=== PATIENT | male | born 1970 | race Caucasian/White ===

== ENCOUNTER 2018-02-14 18:57 | Emergency (ER) | payer OTHER ==
--- NOTE | 2018-02-14 19:24 | ERPHSYRPT ---
- History of Present Illness Time Seen by Provider: 02/14/18 19:05 Source: patient, family Patient Subjective Stated Complaint: sore throat Triage Nursing Assessment: Patient ambulated into ED and transferred self to bed. Patient complains of feeling like something is in his throat. Patient states he was eating dinner at a local [place] restaurant eating chicken and rice. After dinner he states he felt like a piece of food was stuck in his throat. Patient states he feels more discomfort when lying down. Patient denies SOB. Lungs noted to be clear a/p rusty. O2 94% on room air. No foreign body noted. Physician History: 47 y/o white male in no respiratory or gastrointestinal distress, presents with sore throat and painful swallowing. hurts worse when pt lying flat. 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 Timing/Duration: abrupt onset (scow captain) Severity: mild ENT Location: throat Prearrival Treatment: no prearrival treatment Associated Symptoms: sore throat (when lying flat and swallowing) Allergies/Adverse Reactions: No Known Drug Allergies Allergy (Unverified 02/14/18 19:19) Hx Tetanus, Diphtheria Vaccination/Date Given: No Hx Influenza Vaccination/Date Given: No Hx Pneumococcal Vaccination/Date Given: No Immunizations Up to Date: Yes - Review of Systems Constitutional: No Symptoms Eyes: No Symptoms Ears, Nose, & Throat: Throat Pain (mild when swallowing) Respiratory: No Symptoms Cardiac: No Symptoms Abdominal/Gastrointestinal: No Symptoms Genitourinary Symptoms: No Symptoms Musculoskeletal: No Symptoms Skin: No Symptoms Neurological: No Symptoms Psychological: No Symptoms Endocrine: No Symptoms Hematologic/Lymphatic: No Symptoms Immunological/Allergic: No Symptoms All Other Systems: Reviewed and Negative - Past Medical History Pertinent Past Medical History: No Neurological History: No Pertinent History ENT History: No Pertinent History Cardiac History: No Pertinent History Respiratory History: No Pertinent History Endocrine Medical History: No Pertinent History Musculoskeletal History: No Pertinent History GI Medical History: No Pertinent History History: No Pertinent History Psycho-Social History: No Pertinent History Male Reproductive Disorders: No Pertinent History - Past Surgical History Past Surgical History: Yes Neuro Surgical History: No Pertinent History Cardiac: No Pertinent History Respiratory: No Pertinent History Gastrointestinal: No Pertinent History Genitourinary: No Pertinent History Musculoskeletal: Orthopedic Surgery Male Surgical History: No Pertinent History Other Surgical History: Rusty knee surgeries - Social History Smoking Status: Current some day smoker How long have you smoked: 30 years Exposure to second hand smoke: Yes Drug Use: none Patient Lives Alone: No - Nursing Vital Signs Nursing Vital Signs: Initial Vital Signs Temperature 99.1 F 02/14/18 19:09 Pulse Rate 81 02/14/18 19:09 Respiratory Rate 18 02/14/18 19:09 Blood Pressure 143/92 02/14/18 19:09 O2 Sat by Pulse Oximetry 96 02/14/18 19:09 Pain Scale Pain Intensity 0 - Physical Exam General Appearance: no apparent distress, alert, anxiety (mildy anxious) Eye Exam: bilateral eye: normal inspection, PERRL, EOMI, abnormal EOM Ear Exam: bilateral ear: auricle normal, canal normal, TM normal Nasal Exam: normal inspection Throat Exam: moist mucus membranes, pharynx tenderness (oropharynx with redness. no fb, no swelling. 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 Counseled pt/family regarding: diagnosis, need for follow-up, rad results - Departure Time of Disposition: 20:02 Departure Disposition: Home Clinical Impression: Foreign body sensation in throat Condition: Stable Critical Care Time: No Additional Instructions: drink plenty of fluids. may use throat lozenges of any type. use tylenol and ibuprofen for pain. follow up with ENT tomorrow for further management. swish, gargle and spit out the viscous lidocaine every 8 hours as needed. Prescriptions: Lidocaine HCl Viscous [XYLOCAINE HCl Viscous *] 10 ml MM Q8H PRN PRN #1 bottle PRN Reason: Mild To Moderate Pain
[2018-02-14] MEDS ORDERED: DELTASONE 20 MG PO ONE (20:00)
[2018-02-14] MEDS ORDERED: XYLOCAINE HCl Viscous MM ONE (20:01)
[2018-02-14] MEDS ORDERED: DELTASONE 20 MG ONE (20:09)
[2018-02-14] MEDS ORDERED: XYLOCAINE HCl Viscous ONE (20:10)
[2018-02-14 20:20] VITALS: BP 138/79; PULSE 73; O2SAT 94
--- NOTE | 2018-02-15 09:00 | XRAY ---
Indication: Painful pharynx. Possible foreign body. Comparison: None AP/lateral soft tissue neck negative for radiopaque foreign body. Normal epiglottis. Underlying cervical spine intact with minimal degenerative changes. Impression: Negative soft tissue neck.
== END 2018-02-14 20:25 | disposition home or self-care (01) ==
LOC: ED 18:57
DX: R09.89 Other specified symptoms and signs involving the circulatory and respiratory systems (principal)
CPT/HCPCS: 70360; 96372; 99283; A9270

== ENCOUNTER 2020-02-04 18:34 | Emergency (ER) | payer OTHER ==
[2020-02-04] MEDS ORDERED: HYDROCODONE-ACETAMIN 2.5-108/5 ML SOLUTION ONE (19:51)
[2020-02-04] MEDS ORDERED: solu-MEDROL 125 MG ONE (19:51)
[2020-02-04 19:55] LABS: Absolute Neutrophil Ct (ANC) 5.67 (1.4-6.9); BASOPHIL % 0.4 % (0.0-0.4); Basophil (Absolute #) 0.04 (0-0.4); Eosinophil (Absolute #) 0.27 (0-0.5); Lymphocyte (Absolute #) 1.86 (1.0-4.6); Lymphocytes % 20.8 % (24.0-44.0); Mean Cell Volume 92.8 fl (78-100); Mean Corpuscular Hemoglobin 31.5 pg (26-32); Mean Platelet Volume 9.9 fl (7.5-11.0); Monocyte (Absolute #) 1.11 (0.0-1.3); Monocytes % 12.4 % (0.0-12.0); Neutrophil % 63.4 % (36.0-66.0); Platelet Count 216 K/mm3 (150-450); Red Blood Count 5.39 M/mm3 (4.1-5.6); Red Cell Distribution Width 13.3 % (11.5-14.0)
[2020-02-04] MEDS: HYDROCODONE-ACETAMIN 2.5-108/5 ML SOLUTION PO STA (19:57)
[2020-02-04] MEDS: solu-MEDROL 125 MG IV ONE (19:57)
[2020-02-04 20:01] LABS: ALBUMIN 4.4 g/dL (3.5-5.0); ALKALINE PHOSPHATASE 90 U/L (38-126); BLOOD UREA NITROGEN 14 mg/dL (9-20); CHLORIDE 106 mmol/L (98-107); Calcium 9.7 mg/dL (8.4-10.2); Carbon Dioxide 20 mmol/L (22-30); Creatinine 1 0.98 mg/dL (0.66-1.25); EST GLOMERULAR FILTRATION RATE > 60.0 ML/MIN; Glucose 108 mg/dL (74-106); Potassium 4.3 mmol/L (3.5-5.1); SGOT/AST 34 U/L (17-59); SGPT/ALT 34 U/L (0-50); SODIUM 136 mmol/L (137-145)
[2020-02-04] MEDS: Ventolin Hfa MDI IH STA (20:12)
--- NOTE | 2020-02-04 20:21 | ERPHSYRPT ---
- History of Present Illness Time Seen by Provider: 02/04/20 19:15 Source: patient Exam Limitations: no limitations Patient Subjective Stated Complaint: here for cough,chills aches, headache since last night,sob Triage Nursing Assessment: pt alert, resp easy, face mask in place, has dry hacky cough, no edema, mucus membranses moist Physician History: 49 years old male presented in the ER with 2 days history of progressively worsening cough congestion. Patient report initially it started as a sore throat followed by nasal/sinus congestion and dry cough. Patient is having bouts of dry coughing with minimal shortness of breath during episodes of coughing. Denies fever but has chills, body aches and mild headache and nausea. Denies any abdominal pain. Patient does not report any known positive COVID-19 sick contact. Denies any chest pain or palpitations. Timing/Duration: day(s) (2), gradual onset, worse Cough Quality/Degree: moderate, dry cough Possible Cause: no prior episodes Modifying Factors: Improves With: coughing Associated Symptoms: chills, cough, headache, muscle aches, nasal congestion, sore throat, No fever Allergies/Adverse Reactions: No Known Drug Allergies Allergy (Verified 02/04/20 18:49) Hx Tetanus, Diphtheria Vaccination/Date Given: No Hx Influenza Vaccination/Date Given: No Hx Pneumococcal Vaccination/Date Given: No Immunizations Up to Date: Yes Travel Risk - International Travel Have you traveled outside of the country in past 3 weeks: No - Coronavirus Screening Are you exhibiting any of the following symptoms?: Yes Symptoms: Cough: New Onset, Shortness of Breath, Vomiting/Diarrhea, Head aches/Body Aches/Fatigue - Review of Systems Constitutional: Chills, Fatigue, Malaise Eyes: No Symptoms Ears, Nose, & Throat: Nose Congestion, Throat Pain Respiratory: Cough, No Wheezing Cardiac: No Symptoms Abdominal/Gastrointestinal: Nausea Genitourinary Symptoms: No Symptoms Musculoskeletal: Myalgias Skin: No Symptoms Neurological: No Symptoms Psychological: No Symptoms Endocrine: No Symptoms Hematologic/Lymphatic: No Symptoms Immunological/Allergic: No Symptoms - Past Medical History Pertinent Past Medical History: No Neurological History: No Pertinent History ENT History: No Pertinent History Cardiac History: No Pertinent History Respiratory History: No Pertinent History Endocrine Medical History: No Pertinent History Musculoskeletal History: No Pertinent History GI Medical History: No Pertinent History History: No Pertinent History Psycho-Social History: No Pertinent History Male Reproductive Disorders: No Pertinent History - Past Surgical History Past Surgical History: Yes Neuro Surgical History: No Pertinent History Cardiac: No Pertinent History Respiratory: No Pertinent History Gastrointestinal: No Pertinent History Genitourinary: No Pertinent History Musculoskeletal: Orthopedic Surgery Male Surgical History: No Pertinent History Other Surgical History: knee x2 and shoulder - Social History Smoking Status: Never smoker How long have you smoked: 30 years Exposure to second hand smoke: No Drug Use: none Patient Lives Alone: No - Nursing Vital Signs Nursing Vital Signs: Initial Vital Signs Respiratory Rate 20 02/04/20 18:43 O2 Sat by Pulse Oximetry 97 02/04/20 18:43 Pain Scale Pain Intensity 2 - Physical Exam General Appearance: no apparent distress, alert Eye Exam: PERRL/EOMI, eyes nml inspection Ears, Nose, Throat Exam: pharyngeal erythema Neck Exam: normal inspection, non-tender, supple, full range of motion Respiratory Exam: normal breath sounds, lungs clear Cardiovascular Exam: regular rate/rhythm, normal heart sounds Gastrointestinal/Abdomen Exam: soft, normal bowel sounds, No tenderness Back Exam: normal inspection, normal range of motion Extremity Exam: normal inspection, normal range of motion Neurologic Exam: alert, oriented x 3, cooperative, 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 Skin Exam: normal color, warm SpO2 Interpretation: normal SpO2: 97 O2 Delivery: Room Air - Course Nursing assessment & vital signs reviewed: Yes EKG Interpreted by Me: RATE (99), Sinus Rhythm, NORMAL AXIS, NORMAL INTERVALS, NORMAL QRS Ordered Tests: Active Orders 24 hr Category Date Time Status CHEST 1 VIEW (PORTABLE) Stat Exams 02/04/20 19:25 Taken BLOOD CULTURE Stat Lab 02/04/20 20:01 Received CBC W DIFF Stat Lab 02/04/20 19:47 Completed CMP Stat Lab 02/04/20 19:47 Completed Lactic Acid Stat Lab 02/04/20 20:26 Completed Lactic Acid Stat Lab 02/04/20 21:20 Completed Respiratory Therapy Assessment DAILY RT 02/04/20 20:14 Completed Medication Summary Discontinued Medications Generic Name Dose Route Start Last Admin Trade Name Freq PRN Reason Stop Dose Admin Hydrocodone Bitart/Acetaminophen 15 ml 02/04/20 19:42 02/04/20 19:57 Hydrocodone-Acetamin 2.5-108/5 Ml Solution PO 02/04/20 19:43 15 ml STAT STA Administration Hydrocodone Bitart/Acetaminophen Confirm 02/04/20 19:51 Hydrocodone-Acetamin 2.5-108/5 Ml Solution Administered 02/04/20 19:52 Dose 15 ml .ROUTE .STK-MED ONE Albuterol Sulfate 4 gm 02/04/20 19:43 02/04/20 20:12 Ventolin Hfa Mdi IH 02/04/20 19:44 4 gm ONCE STA Administration Doxycycline Hyclate 100 mg 02/04/20 20:39 02/04/20 20:44 Vibramycin 100 Mg PO 02/04/20 20:40 100 mg STAT ONE Administration Doxycycline Hyclate Confirm 02/04/20 20:43 Vibramycin 100 Mg Administered 02/04/20 20:44 Dose 100 mg .ROUTE .STK-MED ONE Sodium Chloride 1,000 mls @ 999 mls/hr 02/04/20 20:55 02/04/20 22:16 Sodium Chloride 0.9% 1000 Ml IV 02/04/20 21:55 Infused .Q1H1M STA Infusion Sodium Chloride Confirm 02/04/20 21:00 Sodium Chloride 0.9% 1000 Ml Administered 02/04/20 21:01 Dose 1,000 mls @ ud .ROUTE .STK-MED ONE Ceftriaxone Sodium/Dextrose 1 g in 50 mls @ 100 mls/hr 02/04/20 21:02 02/04/20 21:53 Rocephin 1 Gm-D5w 50 Ml Bag IV 02/04/20 21:31 Infused STAT STA Infusion Azithromycin 500 mg in 250 mls @ 250 mls/hr 02/04/20 21:02 02/04/20 22:18 Zithromax 500 Mg/ 250 Ml Nacl Premix IV 02/04/20 22:01 Infused STAT STA Infusion Azithromycin Confirm 02/04/20 21:06 Zithromax 500 Mg/ 250 Ml Nacl Premix Administered 02/04/20 21:07 Dose 500 mg in 250 mls @ ud IV .STK-MED ONE Ceftriaxone Sodium/Dextrose Confirm 02/04/20 21:06 Rocephin 1 Gm-D5w 50 Ml Bag Administered 02/04/20 21:07 Dose 1 g in 50 mls @ ud IV .STK-MED ONE Methylprednisolone Sodium Succinate 125 mg 02/04/20 19:42 02/04/20 19:57 Solu-Medrol 125 Mg IV 02/04/20 19:43 125 mg STAT ONE Administration Methylprednisolone Sodium Succinate Confirm 02/04/20 19:51 Solu-Medrol 125 Mg Administered 02/04/20 19:52 Dose 125 mg .ROUTE .STK-MED ONE Lab/Rad Data: Laboratory Result Diagrams 02/04/20 19:47 02/04/20 19:47 Laboratory Results 02/04/20 02/04/20 02/04/20 Range/Units 21:20 20:26 19:47 WBC (4.0-10.5) K/mm3 RBC (4.1-5.6) M/mm3 Hgb (12.5-18.0) gm/dl Hct (42-50) % MCV (78-100) fl MCH (26-32) pg MCHC (32-36) g/dl RDW (11.5-14.0) % Plt Count (150-450) K/mm3 MPV (7.5-11.0) fl Gran % (36.0-66.0) % Eos # (Auto) (0-0.5) Absolute Lymphs (auto) (1.0-4.6) Absolute Monos (auto) (0.0-1.3) Lymphocytes % (24.0-44.0) % Monocytes % (0.0-12.0) % Eosinophils % (0.00-5.0) % Basophils % (0.0-0.4) % Absolute Granulocytes (1.4-6.9) Basophils # (0-0.4) Sodium 136 L (137-145) mmol/L Potassium 4.3 (3.5-5.1) mmol/L Chloride 106 (98-107) mmol/L Carbon Dioxide 20 L (22-30) mmol/L Anion Gap 14.0 (5-15) MEQ/L BUN 14 (9-20) mg/dL Creatinine 0.98 (0.66-1.25) mg/dL Estimated GFR > 60.0 ML/MIN Glucose 108 H (74-106) mg/dL Lactic Acid 2.2 H 4.9 H (0.4-2.0) Calcium 9.7 (8.4-10.2) mg/dL Total Bilirubin 0.60 (0.2-1.3) mg/dL AST 34 (17-59) U/L ALT 34 (0-50) U/L Alkaline Phosphatase 90 (38-126) U/L Serum Total Protein 8.0 (6.3-8.2) g/dL Albumin 4.4 (3.5-5.0) g/dL 02/04/20 Range/Units 19:47 WBC 9.0 (4.0-10.5) K/mm3 RBC 5.39 (4.1-5.6) M/mm3 Hgb 17.0 (12.5-18.0) gm/dl Hct 50.0 (42-50) % MCV 92.8 (78-100) fl MCH 31.5 (26-32) pg MCHC 34.0 (32-36) g/dl RDW 13.3 (11.5-14.0) % Plt Count 216 (150-450) K/mm3 MPV 9.9 (7.5-11.0) fl Gran % 63.4 (36.0-66.0) % Eos # (Auto) 0.27 (0-0.5) Absolute Lymphs (auto) 1.86 (1.0-4.6) Absolute Monos (auto) 1.11 (0.0-1.3) Lymphocytes % 20.8 L (24.0-44.0) % Monocytes % 12.4 H (0.0-12.0) % Eosinophils % 3.0 (0.00-5.0) % Basophils % 0.4 (0.0-0.4) % Absolute Granulocytes 5.67 (1.4-6.9) Basophils # 0.04 (0-0.4) Sodium (137-145) mmol/L Potassium (3.5-5.1) mmol/L Chloride (98-107) mmol/L Carbon Dioxide (22-30) mmol/L Anion Gap (5-15) MEQ/L BUN (9-20) mg/dL Creatinine (0.66-1.25) mg/dL Estimated GFR ML/MIN Glucose (74-106) mg/dL Lactic Acid (0.4-2.0) Calcium (8.4-10.2) mg/dL Total Bilirubin (0.2-1.3) mg/dL AST (17-59) U/L ALT (0-50) U/L Alkaline Phosphatase (38-126) U/L Serum Total Protein (6.3-8.2) g/dL Albumin (3.5-5.0) g/dL - Progress Progress: improved, re-examined Air Movement: good Progress Note: 02/04/20 20:45 49 years old is evaluated for cough chills body aches/headache. He is given liquid Lortab and albuterol inhaler along with a dose of steroid, on reevaluation he is feeling much better. Work-up showed normal white count, g rossly unremarkable chemistries. Chest x-ray showed questionable infiltrative process, started on doxycycline. Patient is maintaining oxygen saturation well above 95% on room air with no signs of distress. Patient is afebrile. Patient wants to go home, I think this is reasonable. Started on antibiotics. I would obtain COVID-19 testing and recommended following precautions. 02/04/20 21:54 Patient lactate came back and it was 4.9 although patient is not have any toxic look. I have repeated lactate as blood was sitting for almost an hour before testing was done and repeated lactate without any fluids or treatment is 2.2. In the meanwhile patient is given a dose of Rocephin and Zithromax as well and a bag of fluid. Patient continues to improve and on repeated evaluation feeling much better. I would continue with doxy to go home. Discussed signs symptoms of worsening again with patient in detail needing return to ER which he seems understanding. Blood Culture(s) Obtained: Yes Antibiotics given: Yes Counseled pt/family regarding: lab results, diagnosis, need for follow-up, rad results - Departure Departure Disposition: Home Clinical Impression: Bronchitis, Viral syndrome Condition: Stable Critical Care Time: No Referrals: DOCTOR,NO FAMILY [Primary Care Provider] - AMANDA WARNER [ACTIVE STAFF] - Follow Up with PCP/3 days Instructions: Cough, Adult (DC) Additional Instructions: Take Tylenol as needed for body aches/headache. Use contact/droplet precautions until your COVID-19 testing is back. Follow-up with your primary care physician in 2 days for reevaluation. Return to ER for worsening cough or if develop fever/shortness of breath etc. Prescriptions: Hydrocodone Bit/Acetaminophen [Hydrocodone-Acetaminophen Soln] 10 ml PO Q6H PRN PRN #118 solution PRN Reason: Cough Prednisone 20 mg [Deltasone 20 mg] 60 mg PO DAILY 5 Days #15 tablet Albuterol 8 gm Mdi Hfa [Ventolin Hfa MDI] 8 gm IH Q4H #1 [email or web address] Doxycycline Hyclate 100 mg [Vibramycin 100 MG] 100 mg PO BID #14 tab
[2020-02-04] MEDS ORDERED: Vibramycin 100 MG ONE (20:43)
[2020-02-04] MEDS: Vibramycin 100 MG PO ONE (20:44)
[2020-02-04] MEDS ORDERED: Sodium Chloride 0.9% 1000 ML 1,000 ML ONE (21:00)
[2020-02-04] MEDS: Sodium Chloride 0.9% 1000 ML 1,000 ML IV STA (21:03)
[2020-02-04] MEDS ORDERED: Zithromax 500 MG/ 250 ML NaCl Premix 500 MG/250 ML IVPB IV ONE (21:06)
[2020-02-04] MEDS ORDERED: ROCEPHIN 1 Gm-D5w 50 ml Bag** 1 G/50 ML IVPB IV ONE (21:06)
[2020-02-04] MEDS: ROCEPHIN 1 Gm-D5w 50 ml Bag** 1 G/50 ML IVPB IV STA (21:11)
[2020-02-04] MEDS: Zithromax 500 MG/ 250 ML NaCl Premix 500 MG/250 ML IVPB IV STA (21:12)
[2020-02-04 22:21] VITALS: BP 121/62; PULSE 101
[2020-02-04 22:33] VITALS: O2SAT 97
--- NOTE | 2020-02-05 08:54 | XRAY ---
Indication: Fever and cough. Suspect Kovic 19. Comparison: None Portable chest slightly underinflated with subtle hazy bilateral groundglass opacities, right greater than the left without consolidation/large effusion. Remaining heart and bony thorax unremarkable.
== END 2020-02-04 22:36 | disposition home or self-care (01) ==
LOC: ED 18:34
DX: J40 Bronchitis, not specified as acute or chronic (principal); B34.9 Viral infection, unspecified
CPT/HCPCS: 36000; 36415; 71045; 80053; 83605; 85025; 87040; 94640; 96360; 96365; 96368; 96374; 99284; U0003; J0456; J0696; J2930; A9270-GY

== ENCOUNTER 2025-01-20 10:39 | Emergency (ER) | payer BC ==
--- NOTE | 2025-01-20 10:48 | ERPHSYRPT ---
- History of Present Illness Time Seen by Provider: 01/20/25 10:48 Source: patient, family Exam Limitations: no limitations Physician History: Pt had onset of pain swelling right anterior leg and tenderness after a fall in his garage from standing ht against objects in garage other leg has nondistractable superficial lac and nontender but residual numbness from prior injury. No other complaints of injury - no dizziness, no blood thinners, did not hit head or abd or chest. Normal neuro exam and mental status. chest and abd all nontender without peritineal signs or distension. full ROM all other ext, hips and knees without pain. No Headache or CP or abd pain. Spine nontender throughout. pulses and cap refill good bilaterally distal to contusion/swelling. Discussed with pt and available family risks and benefits of testing/Tx including xrAY of both lower legs. nV/ and tendon fxn intact bilat. declines pain med, but wishes update TDAP and Bactroban AB. and they wish to proceed so these are ordered. Results discussed with pt and available family Pt and family were advised of the limitations of the testing and Tx performed today in this setting and that he may be at some risk for undetected occult injury (final rad review Wednesday) and development of compartment syndrome; They voice their understanding and wish to choose outpatient f/u rather than further testing in ER at this time and they have the capacity to make this choice. Method of Injury: fell Occurred: just prior to arrival Quality: constant, sharpness Severity of Pain-Max: moderate Severity of Pain-Current: moderate Lower Extremities Pain: leg: bilateral (right Left leg has chronic decreased sensation without change) Modifying Factors: Improves With: movement, other (weight bearing) Associated Symptoms: other (pain with weight bearing anamika right) Allergies/Adverse Reactions: No Known Drug Allergies Allergy (Verified 01/20/25 10:50) Hx Tetanus, Diphtheria Vaccination/Date Given: No Hx Influenza Vaccination/Date Given: No Hx Pneumococcal Vaccination/Date Given: No - Review of Systems Constitutional: No Fever, No Chills Eyes: No Symptoms Ears, Nose, & Throat: No Symptoms Respiratory: No Cough, No Dyspnea Cardiac: No Chest Pain, No Edema, No Syncope Abdominal/Gastrointestinal: No Abdominal Pain, No Nausea, No Vomiting, No Diarrhea Genitourinary Symptoms: No Dysuria Musculoskeletal: Fall, Injury, Other (pain and swelling lower ant shins), No Back Pain, No Neck Pain Skin: No Rash Neurological: No Dizziness, No Focal Weakness, No Sensory Changes Psychological: No Symptoms Endocrine: No Symptoms Hematologic/Lymphatic: No Symptoms Immunological/Allergic: No Symptoms All Other Systems: Reviewed and Negative - Past Medical History Pertinent Past Medical History: No Neurological History: No Pertinent History ENT History: No Pertinent History Cardiac History: No Pertinent History Respiratory History: No Pertinent History Endocrine Medical History: No Pertinent History Musculoskeletal History: No Pertinent History GI Medical History: No Pertinent History History: No Pertinent History Psycho-Social History: No Pertinent History Male Reproductive Disorders: No Pertinent History - Past Surgical History Past Surgical History: Yes Neuro Surgical History: No Pertinent History Cardiac: No Pertinent History Respiratory: No Pertinent History Gastrointestinal: No Pertinent History Genitourinary: No Pertinent History Musculoskeletal: Orthopedic Surgery Male Surgical History: No Pertinent History Other Surgical History: knee x2 and shoulder - Social History Smoking Status: Never smoker How long have you smoked: 30 years Exposure to second hand smoke: No Drug Use: none Patient Lives Alone: No - Nursing Vital Signs Nursing Vital Signs: Initial Vital Signs Temperature 97 F 01/20/25 10:40 Pulse Rate 76 01/20/25 10:40 Respiratory Rate 14 01/20/25 10:40 Blood Pressure 156/95 01/20/25 10:40 O2 Sat by Pulse Oximetry 98 01/20/25 10:40 Pain Scale Pain Intensity 8 - Physical Exam General Appearance: no apparent distress, alert Eyes, Ears, Nose, Throat Exam: moist mucous membranes Neck Exam: non-tender, supple Cardiovascular/Respiratory Exam: chest non-tender, normal breath sounds, regular rate/rhythm, no respiratory distress Gastrointestinal/Abdominal Exam: non-tender, guarding Back Exam: normal inspection, No vertebral tenderness Hips Exam: bilateral: non-tender, normal inspection, normal range of motion, no evidence of injury Legs Exam: right leg: bone tenderness, deformity, pain, swelling, bilateral leg: abrasions, ecchymosis, soft tissue tenderness Knees Exam: bilateral knee: non-tender, normal inspection, normal range of motion, no evidence of injury Ankle Exam: bilateral ankle: non-tender, normal inspection, normal range of motion, no evidence of injury Foot Exam: bilateral foot: non-tender, normal inspection, normal range of motion, no evidence of injury DTR - Lower Extremities Exam: knee (R): 2+, knee (L): 2+, ankle (R): 2+, ankle (L): 2+ Neuro/Tendon Exam: normal sensation, normal motor functions Mental Status Exam: alert, oriented x 3, cooperative Skin Exam: normal color, warm, dry SpO2 Interpretation: normal SpO2: 98 O2 Delivery: Room Air Procedures - Splinting Time of Procedure: 11:37 Location of Splint: Right, Lower Leg Type of Splint: Orthoglass Short Leg Splint Splint Applied By: ED Nurse Pre-Proc Neuro Vasc Exam: normal Post-Proc Neuro Vasc Exam: neurovascular intact, unchanged from pre-exam - Course Nursing assessment & vital signs reviewed: Yes - Radiology Exams Left Lower Leg X-ray Interpretation: Interpreted by me, Other (no obvious fx) Right Lower Leg X-ray Interpretation: Interpreted by me, Non-displaced Fracture Ordered Tests: Active Orders 24 hr Category Date Time Status LOWER LEG Stat Exams 01/20/25 10:59 Taken LOWER LEG Stat Exams 01/20/25 11:00 Taken LOWER LEG Stat Exams 01/20/25 11:19 Taken Medication Summary Discontinued Medications Generic Name Dose Route Start Last Admin Trade Name Freq PRN Reason Stop Dose Admin Bacitracin Zinc 0.18 each 01/20/25 11:13 01/20/25 11:45 Bacitracin Packet 1 Each Pckt TP 01/20/25 11:14 Not Given STAT ONE Bacitracin Zinc Confirm 01/20/25 11:14 Bacitracin Packet 1 Each Pckt Administered 01/20/25 11:15 Dose 3 each .ROUTE .STK-MED ONE Bacitracin Zinc 0.9 each 01/20/25 11:42 01/20/25 11:44 Bacitracin Packet 1 Each Pckt TP 01/20/25 11:43 0.9 each STAT ONE Administration Diphtheria/Tetanus/Acell Pertussis 0.5 ml 01/20/25 10:58 01/20/25 11:04 Tdap --Diph,Pertuss(Acell),Tet Vac/Pf 0.5 Ml Vial IM 01/20/25 10:59 0.5 ml .ONCE ONE Administration Diphtheria/Tetanus/Acell Pertussis Confirm 01/20/25 11:03 Tdap --Diph,Pertuss(Acell),Tet Vac/Pf 0.5 Ml Vial Administered 01/20/25 11:04 Dose 0.5 ml IM .STK-MED ONE Ketorolac Tromethamine 60 mg 01/20/25 11:31 01/20/25 11:33 Ketorolac Tromethamine 30 Mg/Ml Inj IM 01/20/25 11:32 60 mg STAT ONE Administration Ketorolac Tromethamine Confirm 01/20/25 11:32 Ketorolac Tromethamine 30 Mg/Ml Inj Administered 01/20/25 11:33 Dose 60 mg .ROUTE .STK-MED ONE - Progress Progress: improved, re-examined Counseled pt/family regarding: diagnosis, need for follow-up, rad results Medical Desision Making - Independent Historian Additional History obtained from: Family - Discussion of managment Reviewed:: Test results, Need for additional workup Agreed on:: Treatment plan, need for follow-up - Diagnostic Testing Diagnostic test were ordered, analyzed, and reviewed by me: Yes Radiological Interpretation: Interpreted by me - Risk of complications The pt has a mod risk of morbidity or mortality based on: Need for prescription drug management - Departure Departure Disposition: Home Clinical Impression: correction contusion both legs, nondisplaced Fx right tibia Clinical Impression: (Ruled Out): Contusion of both lungs Condition: Good Critical Care Time: No Referrals: EUSEBIO LOPEZ NP [Primary Care Provider, [facility]] - Follow up/PCP as directed Instructions: Lower leg fracture, Acute compartment syndrome, Contusion (DC), Crush Injury (DC) Additional Instructions: We are treating as if there can be a fracture of your right leg with splint and crutches - the final x-ray reading will be Wednesday, but x-ray looks like could be a hairline fracture. This is at risk for compartment syndrome from swelling which can be delayed. It will help to elevate and put on ice pack. Use tylenol initially then alleve if needed , but further pain not related to standing and not helped /controlled by these measures may be a important early sign for compartment swelling and you should return for recheck. Also followup your BP with your Dr. Follow up with your Dr. this week and return meantime if any concerns. Prescriptions: Mupirocin [Bactroban OINTMENT] 22 gm TP BID #1 cartridge
[2025-01-20 11:00] VITALS: RESP 14; TEMP 97
[2025-01-20] MEDS ORDERED: Adacel Vial IM ONE (11:03)
[2025-01-20] MEDS: Adacel Vial IM ONE (11:04)
[2025-01-20] MEDS ORDERED: BACIGUENT PACKET ONE (11:14)
[2025-01-20 11:15] VITALS: O2SAT 98
[2025-01-20] MEDS ORDERED: TORAdol 30 mg Injection ONE (11:32)
[2025-01-20] MEDS: TORAdol 30 mg Injection IM ONE (11:33)
[2025-01-20] MEDS: BACIGUENT PACKET TP ONE ×2 (11:44→11:45)
[2025-01-20] MEDS ORDERED: NORCO 5/325 MG ONE (12:01)
[2025-01-20] MEDS: NORCO 5/325 MG PO ONE (12:02)
[2025-01-20 12:04] VITALS: BP 170/85; PULSE 74
--- NOTE | 2025-01-20 20:35 | XRAY ---
Indication: Numbness after trauma. Comparison: None 2 view left lower leg demonstrates prior ACL reconstructive surgery and tiny patella spurring. No other bony, articular, or soft tissue abnormalities.
--- NOTE | 2025-01-20 20:37 | XRAY ---
Indication: Pain and swelling. 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 Incidental tiny patella spurring and small fabella. No other bony, articular, or soft tissue abnormalities.
--- NOTE | 2025-01-20 20:39 | XRAY ---
Indication: Tenderness. Repeat exam without gauze. Comparison: Taken earlier in the day. 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 No new/acute abnormalities.
== END 2025-01-20 12:00 | disposition home or self-care (01) ==
LOC: ED 10:39
DX: S82.201A Unspecified fracture of shaft of right tibia, initial encounter for closed fracture (principal); S80.12XA Contusion of left lower leg, initial encounter; S80.11XA Contusion of right lower leg, initial encounter; W18.30XA Fall on same level, unspecified, initial encounter; Z23 Encounter for immunization